=== PATIENT | female | born 1995 | race Caucasian/White ===

== ENCOUNTER 2017-06-25 05:23 | Inpatient (IN) | payer OTHER ==
[~2017-06-25] VITALS: Ht 162.6 cm; Wt 3.2 kg
[2017-06-25] MEDS ORDERED: PRENATAL TABLE1 EAC1 (06:19)
[2017-06-25] MEDS ORDERED: PRENATAL TABLE1 EAC1 PO (06:20)
[2017-06-28] MEDS ORDERED: OXYC1TAB9 PO (12:16)
[2017-06-28] MEDS ORDERED: DOCUSATE SODIU100 MG PO (12:16)
== END 2017-06-28 14:19 | disposition home or self-care (01) | DRG 766 ==
LOC: OB/GYN 05:23 → LDR 05:23 → O/R 14:14 → OB/GYN 16:30
PROVIDERS: Obstetrics & Gynecology
PROC: 0UT70ZZ Resection of Bilateral Fallopian Tubes, Open Approach (ICD-10-PCS; 2017-06-25)
PROC: 4A1HXCZ Monitoring of Products of Conception, Cardiac Rate, External Approach (ICD-10-PCS; 2017-06-25)
PROC: 4A033R1 Measurement of Arterial Saturation, Peripheral, Percutaneous Approach (ICD-10-PCS; 2017-06-25)
PROC: 10D00Z1 Extraction of Products of Conception, Low, Open Approach (ICD-10-PCS; principal; 2017-06-25 08:30)
DX: O34.211 Maternal care for low transverse scar from previous cesarean delivery (principal); O69.81X0 Labor and delivery complicated by cord around neck, without compression, not applicable or unspecified; Z37.0 Single live birth; Z3A.39 39 weeks gestation of pregnancy; Z64.1 Problems related to multiparity; Z30.2 Encounter for sterilization